=== PATIENT | female | born 2005 | race Caucasian/White ===

== ENCOUNTER 2025-02-19 00:15 | Emergency (ER) | payer BC ==
[2025-02-19 00:44] VITALS: TEMP 98.7; O2SAT 98
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
[2025-02-19] MEDS ORDERED: TYLENOL 325 MG ONE (01:10)
[2025-02-19] MEDS: TYLENOL 325 MG PO ONE (01:10)
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
[2025-02-19 02:08] VITALS: BP 110/76; PULSE 81; RESP 18
== END 2025-02-19 02:09 | disposition home or self-care (01) ==
LOC: ED 00:15
DX: S06.0X0A Concussion without loss of consciousness, initial encounter (principal); V48.6XXA Car passenger injured in noncollision transport accident in traffic accident, initial encounter
CPT/HCPCS: 70450; 99284; A9270-GY